=== PATIENT | male | born 1965 | race Caucasian/White ===

== ENCOUNTER 2017-05-06 14:00 | Outpatient (CLI) | payer SELFPAY ==
[~2017-05-06] VITALS: Ht 175.3 cm; Wt 93.0 kg
[2017-05-06] MEDS ORDERED: FLUO20CA25 PO (14:21)
[2017-05-06] MEDS ORDERED: ATOR20TA66 PO (14:21)
== END 2017-05-06 15:16 ==
LOC: PREOP 14:00
PROVIDERS: ATTEND Surgery
DX: Z01.818 Encounter for other preprocedural examination (principal); Z12.11 Encounter for screening for malignant neoplasm of colon

== ENCOUNTER 2017-05-12 07:00 | Day surgery (SDC) | payer BC ==
[~2017-05-12] VITALS: Ht 175.3 cm; Wt 93.0 kg
[~2017-05-12 07:00] MED LIST: ATOR20TA66 PO; FLUO20CA25 PO
[2017-05-12] MEDS ORDERED: NS IV 500 ML 500 ML IV PRN (07:11)
[2017-05-12] MEDS ORDERED: NS IV 500 ML 500 ML ONE (07:23)
[2017-05-12 07:43] VITALS: BP 115/91
--- NOTE | 2017-05-12 09:13 | History & Physicial ---
History of Present Illness History of Present Illness Reason for visit/HPI to undergo screening colonoscopy. Reports a positive family history of colon cancer in his aunts Date of Admission 05/12/17 Date Seen by Provider: May 12, 2017 Time Seen by Provider: 09:11 I consulted on this patient on 05/12/17 09:11 Attending Physician Mona Uriostegui MD Admitting Physician No,Local Physician Consult Allergies and Home Medications Allergies Coded Allergies: No Known Drug Allergies (Unverified , 05/06/17) Home Medications Atorvastatin Calcium 20 Mg Tablet, 20 MG PO DAILY, (Reported) Fluoxetine HCl 20 Mg Capsule, 20 MG PO DAILY, (Reported) Patient Home Medication List Home Medication List Reviewed: Yes Past Wglzwkf-Xfsovr-Hyzvst Hx Patient Social History Marrital Status: Employed/Student: employed Alcohol Use: Denies Use Recreational Drug Use: No Smoking Status: Never a Smoker Recent Foreign Travel: No Contact w/other who traveled: No Recent Hopitalizations: No Recent Infectious Disease Expo: No Immunizations Up To Date Tetanus Booster (TDap): Unknown Date of Influenza Vaccine: Dec 16, 2016 Seasonal Allergies Seasonal Allergies: Yes (MILD) Surgeries Yes Tonsillectomy Respiratory No Currently Using CPAP: No Currently Using BIPAP: No Cardiovascular Yes High Cholesterol Neurological No Reproductive System Hx Reproductive Disorders: No Sexually Transmitted Disease: No HIV/AIDS: No Gastrointestinal No Musculoskeletal No Endocrine History of Endocrine Disorders: No HEENT History of HEENT Disorders: No Loss of Vision: Bilateral Hearing Impairment: Denies Cancer No Psychosocial History of Psychiatric Problem: Yes Behavioral Health Disorders: Anxiety, Depression Integumentary History of Skin or Integumenta: No Blood Transfusions Adverse Reaction to a Blood Tr: No (N/A) Reviewed Nursing Assessment Reviewed/Agree w Nursing PMH: Yes Family Medical History Significant Family History: Cancer Constitutional: no symptoms reported EENTM: no symptoms reported Respiratory: no symptoms reported Cardiovascular: no symptoms reported Gastrointestinal: no symptoms reported Genitourinary: no symptoms reported Musculoskeletal: no symptoms reported Skin: no symptoms reported Psychiatric/Neurological: No Symptoms Reported Physical Exam Vital Signs Vital Signs - First Documented 05/12/17 07:43 Temp 97.0 Pulse 61 Resp 18 B/P (MAP) 115/91 (99) Pulse Ox 96 O2 Delivery Room Air Capillary Refill : General Appearance: No Apparent Distress Neck: Normal Inspection Respiratory: Lungs Clear Cardiovascular: Regular Rate, Rhythm Gastrointestinal: Non Tender, Soft Rectal: Deferred Back: Normal Inspection Extremity: Normal Inspection Neurologic/Psychiatric: Alert, Oriented x3 Skin: Warm/Dry Assessment/Plan Assessment and Plan gentleman to undergo screening colonoscopy. Discussed in detail. Problems: Admission Diagnosis Admission Status: Other (Outpt Proc) MONA URIOSTEGUI MD May 12, 2017 9:13 am
--- NOTE | 2017-05-12 09:14 | Conscious Sedation/ASA ---
Conscious Sedation Pre-Proced Time Reviewed: 09:14 ASA Class: 2 Airway Mallampati Classification: (hoopa appropriate class) I. II. III, IV Lungs Heart ASA score ASA 1: a normal healthy patient ASA 2: a patient with a mild systemic disease (mid diabetes, controlled hypertension, obesity ASA 3: a patient with a severe systemic disease that limits activity (angina , COPD, prior Myocardial infarction) ASA 4: a patient with an incapacitating disease that is a constant threat to life (CHF, renal failure) ASA 5: a moribund patient not expected to survive 24 hrs. (ruptured aneurysm) ASA 6: a declared brain patient whose organs are being harvested. For emergent operations, add the letter E after the classification Grade 1 Sedation Plan: Discussed options with patient/fam Note The patient is an appropriate candidate to undergo the planned procedure, sedation, and anesthesia. The patient immediately re-assessed prior to indication. MONA URIOSTEGUI MD May 12, 2017 9:14 am
[2017-05-12] MEDS ORDERED: fentaNYL INJECTION 100 MCG/2 ML AMP ONE (09:21)
[2017-05-12] MEDS: fentaNYL INJECTION 100 MCG/2 ML AMP IVP PRN ×2 (09:34→09:42)
[2017-05-12] MEDS: MIDAZOLAM 2 MG/2 ML (VERSED) VIAL IVP PRN ×3 (09:35→09:43)
--- NOTE | 2017-05-12 10:05 | Endo Procedure Record ---
Endo Procedure Report Date of Procedure Last Colonoscopy: No May 12, 2017 Surgeon (s) MONA URIOSTEGUI MD Post Procedure/Op Diagnosis Normal colonoscopy Procedure Performed Colonoscopy to cecum Description of Procedure Anesthesia Type: Conscious Sedation Specimen(s) collected/removed none Description of the Procedure Indication for the procedure: This gentleman came in for screening colonoscopy. He reported a family history of colon cancer in his paternal aunts. Informed consent was obtained after reviewing the procedure in detail. Description of the procedure: He was placed in left lateral rectus position and his vital signs were monitored. Conscious sedation was achieved using Versed and fentanyl. Digital rectal examination was unremarkable. The colonoscope was then introduced in the rectum and advanced all the way up to the cecum. Scope was then withdrawn slowly and the mucosa examined in a systematic fashion. There was no abnormality He tolerated the procedure well and was taken back to the nursing area in a stable condition. Impression: Normal screening colonoscopy. Positive family history. Recommend repeating in 5 years. MONA URIOSTEGUI MD May 12, 2017 10:05 am
--- NOTE | 2017-05-12 10:07 | Discharge Inst-Simple/Standard ---
Discharge Inst-Standard Discharge Medications New, Converted or Re-Newed RX: Other Patient Instructions/Follow Up Plan of Care/Instructions/FU: Repeat colonoscopy in 5 years Activity as Tolerated: Yes Discharge Diet: No Restrictions MONA URIOSTEGUI MD May 12, 2017 10:06 am
[2017-05-12 10:10] VITALS: BP 109/67
[2017-05-12 10:40] VITALS: BP 108/66
[2017-05-12 10:55] VITALS: BP 108/66
== END 2017-05-12 10:55 | disposition home or self-care (01) ==
LOC: ENDO 07:00
PROVIDERS: ATTEND Surgery
DX: Z12.11 Encounter for screening for malignant neoplasm of colon (principal); Z80.0 Family history of malignant neoplasm of digestive organs; E78.00 Pure hypercholesterolemia, unspecified; Z79.899 Other long term (current) drug therapy